=== PATIENT | male | born 1985 | race Hispanic/Latino ===

== ENCOUNTER 2016-08-22 14:26 | Emergency (ER) | payer SELFPAY ==
[~2016-08-22] VITALS: Ht 177.8 cm; Wt 86.4 kg
[2016-08-22 14:42] VITALS: BP 154/104; PULSE 88; RESP 20; O2SAT 96
--- NOTE | 2016-08-22 14:58 | ED.REPORT ---
HPI-Psychiatric Illness Date of Service Aug 22, 2016 ED Provider: Sanjiv Martinez MD William is otherwise healthy 30-year-old male brought in by police out of concern for suicidal ideation. According to his mother, the patient has been kicked out of the home for several months now due to his drug use. She reports that the patient visited her at work today, stating that if she would not let him come home, he would kill himself. She reports that she went upstairs after box if she could leave, when she returned he was gone. At that time she notified police. She believes he has been using methamphetamine, sister additionally suspects cocaine as well as heroin. This reports that the patient has spoken to her about intermittent suicidal ideation. Neither sister or mother report suicidal attempts or gestures. Mother states that he does not have any firearms , and that she hides hers. She denies previous admissions for mental illness or any history of mental illness. Nursing Notes Stated Complaint: PSYCH EVALUATION Chief Complaint: Psychiatric Complaint Nursing Notes Reviewed: Yes Allergies: Coded Allergies: No Known Allergies (Unverified , 08/22/16) General Time Seen by MD: 14:57 Chief Complaint Suicidal ideation Risk-Psychiatric Illness Suicide Risk Stratification RF Statements: Risk factors N/A Past Medical History Past Medical History Mother denies Review of Systems Unable to Obtain ROS Patient condition Physical Exam General: Well appearing, well developed, well nourished, no acute distress. Head: Atraumatic, normocephalic. Eyes: No scleral icterus or injection. No discharge. Vision grossly intact. ENT: Voice clear, hearing grossly intact. Respiratory: No respiratory distress, no increased work of breathing. Speaks in complete sentences. Skin: Warm and dry. Neurological: Grossly nonfocal. Psychological: alert and oriented. But quite sedated. Denies suicidal ideation. Initial Vital Signs Vital Signs (First) Date Time Temp Pulse Resp B/P Pulse Ox O2 Delivery O2 Flow Rate FiO2 08/22/16 14:42 36.6 88 20 154/104 96 Room Air Elevated blood pressure Interpretation & Diagnostics Lab Results Interpretation Result Diagram: 08/22/16 1616 08/22/16 1616 Test 08/22/16 16:16 White Blood Count 10.2th/mm3 (3.8-10.1) Red Blood Count 5.11mil/mm3 (4.40-5.80) Hemoglobin 15.4g/dL (13.8-17.2) Hematocrit 44.8% (41.0-50.0) Mean Corpuscular Volume 87.7fL (81-100) Mean Corpuscular Hemoglobin 30.1pg (27.0-35.0) Mean Corpuscular Hemoglobin Concent 34.4% (32.0-37.0) Red Cell Distribution Width 13.0% (12.3-15.4) Platelet Count 224bil/L (150-400) Neutrophils (%) (Auto) 67.7% (40-74) Lymphocytes (%) (Auto) 21.9% (14-46) Monocytes (%) (Auto) 8.4% (4-12) Eosinophils (%) (Auto) 1.4% (0-5) Basophils (%) (Auto) 0.3% (0-3) Sodium Level 140mEq/L (134-144) Potassium Level 2.9mEq/L (3.5-5.2) Chloride Level 99mEq/L (97-108) Carbon Dioxide Level 21mmol/L (18-29) Blood Urea Nitrogen 11mg/dL (6-20) Creatinine 1.10mg/dL (0.76-1.27) Estimat Glomerular Filtration Rate 85mL/min (>59) Glucose Level 95mg/dL (60-99) Calcium Level 9.0mg/dL (8.5-10.1) Total Bilirubin 1.1mg/dL (0.0-1.2) Aspartate Amino Transf (AST/SGOT) 37U/L (0-50) Alanine Aminotransferase (ALT/SGPT) 23U/L (0-44) Alkaline Phosphatase 57U/L (25-150) Total Creatine Kinase 1366U/L (21-232) Total Protein 7.1g/dL (6.4-8.4) Albumin 4.4g/dL (3.4-5.0) Thyroid Stimulating Hormone (TSH) 0.705uIU/mL (0.450-4.500) Re-Eval/Medical Decision Med Decision/Clinical Course Bertrand Lanza, DO: I saw and examined the patient at 6 AM. He has no thoughts of suicide. He is not at imminent risk of harm to himself or others. He is seen by social work and will be discharged. 22-year-old male brought in by police for chief complaint suicidal ideation. This patient became agitated in the department and was sedated before I could interview and examine him. Initially appeared well waiting in the hallway. History as above provided by mother and sister. Labs ordered which are generally unremarkable except for elevated CK. Breathalyzer 0. Patient could provide little useful history in sedated state but denies suicidal ideation. Patient continues to rest comfortably in the seclusion room at shift change, care is transferred to Dr. Queen. Re-Evaluation/Progress : Time of Eval: 18:46 Re-Evaluation/Progress Note: Resting comfortably, sleeping, still restrained Discharge & Departure Shift Change Sign-Out Patient Care Transferred: Yes Discussed Complaint(s): Yes Laboratory Evaluation: Lab evaluation discussed Response to Therapy: Unchanged Additonal Information: Pt's care was transferred to Dr. Queen at 21:00. The pt was quiet overnight and was signed out to Dr. Lanza at 06:00. Impression: Primary Impression: Substance abuse Discharge Condition All VS Reviewed: Yes Additional Instructions: Use the social work resources provided. Call 911, call the crisis center, or return to the ER if you feel suicidal or have other concerns. Care Transferred to: Dr. Lanza Care Transferred at: 06:00 EDSupervising Provider for APC: Sanjiv Martinez MD Attending Statement Attending attestation: I saw this patient in conjunction with Sánchez Reyes PA-C. I agree with the workup, evaluation, treatment and disposition. Sanjiv Cunningham MD, MD Aug 22, 2016 14:57 Sánchez Reyes PA-C Aug 22, 2016 18:52 Eduin Ruth Aug 23, 2016 05:32 Wilian Queen MD Aug 23, 2016 05:41 Bertrand Lanza DO Aug 23, 2016 11:12
[2016-08-22] MEDS ORDERED: Haloperidol 5 mg/mL Inj IM PRN (15:30)
[2016-08-22 16:27] LABS: BASOPHILS % (AUTO) 0.3 % (0-3); EOSINOPHILS % (AUTO) 1.4 % (0-5); MONOCYTES % (AUTO) 8.4 % (4-12); Mean Corpuscular Hemoglobin 30.1 pg (27.0-35.0); Mean Corpuscular Volume 87.7 fL (81-100); NEUTROPHILS % (AUTO) 67.7 % (40-74); Platelet Count 224 bil/L (150-400)
[2016-08-22] MEDS ORDERED: 0.9% Sodium Chloride 1,000 ML IV SCH (17:10)
[2016-08-22 20:01] VITALS: BP 111/66; PULSE 52; O2SAT 100
[2016-08-23 01:22] VITALS: BP 117/58; PULSE 48; O2SAT 100
[2016-08-23 06:44] VITALS: BP 103/65; PULSE 52; RESP 12; O2SAT 100
[2016-08-23 10:26] VITALS: BP 134/84; PULSE 55; PULSE 68; RESP 12; O2SAT 100; O2SAT 96
== END 2016-08-23 11:20 | disposition home or self-care (01) ==
LOC: SED 14:26 → EDBD 14:26 → SED 08-23 11:20
DX: R45.851 Suicidal ideations (principal); F19.10 Other psychoactive substance abuse, uncomplicated; Z78.1 Physical restraint status
CPT/HCPCS: 36415; 80053; 82075; 82550; 84443; 85025; 90791; 96372; 99285; J1200; J1630; J2060